=== PATIENT | male | born 1940 | race Caucasian/White ===

== ENCOUNTER 2019-08-24 21:47 | Inpatient (IN) | payer MEDICARE, SELFPAY ==
--- NOTE | 2019-08-24 22:16 | ED.GENADUL_ITS ---
Discharge Plan Disposition Patient Disposition: [facility] INPATIENT Condition: Stable Discharge Details Chief Complaint: GenMedical Clinical Impression: Dementia Admit Date/Time: 08/25/19 15:51 Admit Provider: Vero Guillen Attending Provider: Harsh Lam Primary Care Provider: Kari Morrissey ED Provider: Prosper Frances Hospital Course Hospital Course: HPI: 79 year old man with a prior history of Alzheimer's Dementia, admitted from [facility] on 08/25 after being found lost and in a state of confusion. Mr. Jones has a Past Medical history significant for Alzheimer's Dementia, CAD with history of revascularization, Paroxysmal Afib s/p Maze procedure, and Anal Ca s/p chemo and XRT. The patient lives in [place], and drove himself to this area where he was found parked in a [place] field and brought to the ED by the police. He was not ill appearing - no labs or imaging was performed. Urinalysis did not show evidence of infection. [employer] became involved in his care, but with unsuccessful attempts at find family or any associated friends to pick him up to return to [place]. He was admitted under Swing Bed status until appropriate disposition could be made for his return home. This afternoon Mr. Jones was visited by some of his friends and neighbors from [place]. He recognizes them and appears comfortable in their presence, and is consenting to leave in their company to return home. Adult Protective Services were contacted, with discussion with case management culminating in the patient being allowed to leave as long as he is willing to consent as such. Following his return to [place] APS will be following closely and investigating his case. We are reassured by APS and case management that the patient's departure at this time is safe and legally appropriate. Discharge Instructions Forms: Nursing Discharge Form Discharge Data Discharge Date/Time-TO BE ENTERED AT DEPARTURE: 08/25/19 15:49 Medical Decision Making <GISSEL Sue - Last Filed: 08/29/19 21:08> Patient is a 79-year-old male with history of dementia presenting today with chief complaint of altered mental status. Patient typically resides in [facility]. Drove himself here for unclear reasons. He was found to [facility] by police and brought in for evaluation. Patient reported to Police Department that he was a year 1918. Currently endorsing to be 1970. Reports that he is currently in [place]. He is oriented to person. Is able to tell me historical events. Does often pause and have difficulty with recollection and his long periods of thought. He does not appear clinically ill. No abnormalities on physical exam the patient's current mental status. This seems to be baseline for the patient. No neurologic deficits are noted. Will consult with care management. Consult wound care management. Patient is currently comfortable, has been eating and is prepared for sleep at this time. Will be kept in the department overnight for continued monitoring. Care management will help tomorrow to reach out to patient's home and see about transfer back. With his current dementia symptoms, I I am concerned with the patient's current safety residing unassisted. Patient typically receives his care at [facility] in [facility]. Was not able to tell me the name of his primary care physician. At the end of my shift, care was transitioned to Dr. Ny with final disposition pending. Patient is resting comfortably. <Gualberto Ny MD - Last Filed: 08/25/19 07:19> Patient without issues overnight. Care management notified overnight regarding patient. Patient will be signed over to oncoming physician as we work on getting him back to [place]. <Prosper Frances MD - Last Filed: 08/25/19 15:08> pt has remained calm and stable here without complaints. Care management unable to find someone to pick him up or place him anywhere. Will be admitted to swing bed II HPI <GISSEL Sue - Last Filed: 08/29/19 21:08> General Mode of arrival: ambulatory (brought in by PD) . Date/Time Provider Initiated Documentation: 08/24/19 21:49 . Limitations to Documentation: altered mental status (dementia) . Information obtained by: patient, police (accompanied by MH) and RN notes reviewed . HPI Narrative: Patient is a pleasant 79-year-old gentleman, brought in via local police department and accompanied by mental health, with chief complaint of confusion. Patient reports history of dementia. Police to bring the patient in, reports that the patient's family had reported to him a history of dementia. However, the patient does not reside with them, is not involved in their lives at this time. 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 Patient is aware that he is been told he has dementia before but does not necessarily agree with this diagnosis. He was [place] today, [place] Had drove here from [facility] where he typically resides alone. 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 Believes it is 1970 and he is in [place]. He denies any headache, visual changes. No chest pain or shortness of breath. Denies any GI upset, is endorsing hunger at this time. No dysuria, increased frequency urgency. Is feeling physically well. Related Data Home Medications Medication Instructions Recorded Confirmed aspirin 325 mg PO DAILY 08/25/19 08/25/19 Allergies Allergy/AdvReac Type Severity Reaction Status Date / Time Sulfa (Sulfonamide Allergy per pcp Unverified 08/25/19 09:53 Antibiotics) chart sulfamethoxazole Allergy per pcp Unverified 08/25/19 09:52 [From Bactrim] chart trimethoprim [From Bactrim] Allergy per pcp Unverified 08/25/19 09:52 chart hydrocodone AdvReac Hallucinati Unverified 08/25/19 09:52 ons Review of Systems <GISSEL Sue - Last Filed: 08/29/19 21:08> Constitutional Constitutional: Reports as per HPI, Denies chills, Denies fatigue, Denies fever(s), Denies headache(s) and Denies weakness Eyes Eyes: Denies change in vision ENT Ears, Nose, Mouth, and Throat: Denies headache(s) Cardiovascular Cardiovascular: Reports as per HPI, Denies chest pain, Denies lightheadedness, D enies dyspnea and Denies dyspnea on exertion Respiratory Respiratory: Reports as per HPI, Denies cough, Denies dyspnea and Denies dyspnea on exertion Gastrointestinal Gastrointestinal: Reports as per HPI, Denies abdominal pain, Denies change in bowel habits, Denies nausea and Denies vomiting Genitourinary Genitourinary: Denies system reviewed and no additional complaints, except as docu (denies any change in urinary habits) Musculoskeletal Musculoskeletal: Denies abnormal gait Integumentary/Breasts Skin/Breast: Reports as per HPI and Denies rash Neurologic Neurologic: Denies abnormal movements, Denies abnormal speech, Denies abnormal gait, Denies headache(s), Reports memory loss, Denies paresthesias and Denies weakness Psychiatric Psychiatric: Denies change in appetite, Denies hopelessness, Reports memory loss, Denies homicidal ideation and Denies suicidal ideation Endocrine Endocrine: Denies fatigue PFSH <GISSEL Sue Last Filed: 08/29/19 21:08> Medical History Alzheimer's dementia (Chronic) Anal adenocarcinoma (Acute) Angina pectoris (Chronic) Atrial fibrillation (Chronic) Surgical History Hernia (Chronic) History of heart surgery (Chronic) History of removal of Port-a-Cath (Acute) Port-A-Cath in place (Acute) Social History Smoking/Tobacco Use Status: Former Tobacco Use Alcohol Intake: current Alcohol Intake frequency: holidays/special occasions only Drug use: Never Substance use type: does not use Do you feel safe at home: Yes Do you feel safe in your relationship?: Yes Exam <GISSEL Sue Last Filed: 08/29/19 21:08> Const General: cooperative, healthy appearing, comfortable, no acute distress, well developed and well groomed Nutritional Appearance: average body habitus and well nourished Orientation: alert and awake Eyes General: appearance normal, both eyes and all related structures Resp Effort & Inspection: normal respiratory effort, able to speak in complete sentences and no respiratory distress Auscultation: clear to auscultation bilaterally, no rales, no rhonchi and no wheezes Cardio Rate: regular rate Rhythm: regular rhythm Heart Sounds: S1 normal and S2 normal Skin General skin exam: no rashes or lesions noted Trauma: no lacerations or abrasions Neuro General: alert and awake Cognition: normal cognition Speech: speech normal Gait: normal gait Psych Appearance: grossly normal and well kempt Mental Status: mental status grossly normal Speech and Movement: speech and movement normal Mood: congruent mood Affect: normal affect Attitude: cooperative Thought Process: tangential Insight: limited Judgment: limited Sign Out <GISSEL Sue Last Filed: 08/29/19 21:08> Sign Out Data: Sign Out Comment: Care transitioned to Dr. Ny with final disposition pending. Patient pleasantly confused, drove here from [place], found in care in local cow field, confused. Hx of dementia. Last updated by Rupal Gamble PA at 08/24/19 23:37 Sign Out Comment: Pending care management evaluation. Last updated by Gualberto Ny MD at 08/25/19 07:50
[2019-08-24 22:37] VITALS: BP 156/95; PULSE 98; RESP 16; TEMP 36.7; O2SAT 95
[2019-08-24 22:46] VITALS: RESP 16
--- NOTE | 2019-08-24 23:15 | NUR.NOTE ---
Arrives with police and [facility] with c/o confusion. Per [place] police lieutenant, pt was found in his car in a neighbors cow field. Pt reports that he is from [place], [place], had driven here to visit some family. Pt unsure where here is, and whether he made it to see his family. Pt lives at home alone, , no children. Per police got in touch with family, pt had license suspended by [facility] d/t dementia. They tried to help pt find a facility to live in, he refused to go. They will not send anyone to come get him. Pt has no c/o, feels well. Alert to person, confused to time, place, location. Calm and cooperative. Changed into paper clothing for sleep. Pt aware plan is to stay overnight in ED. Provided with sandwich, wilner jaclyn and yogurt. Ambulating to BR with steady gait.
[2019-08-25 02:18] LABS: Bilirubin Negative (Negative); Blood Negative (Negative); Clarity Clear (Clear); Glucose Negative (Negative); Ketones Trace mg/dL (Negative); Leukocyte Esterase Negative (Negative); Nitrite Negative (Negative); Specific Gravity >= 1.030 (1.005-1.025)
--- NOTE | 2019-08-25 02:35 | NUR.NOTE ---
Ambulated to With steady gait. Provided urine spec.
--- NOTE | 2019-08-25 09:24 | NUR.NOTE ---
Nursing Note: PCP; Dr. Karson Sun of [place], [place]. Phone #: [phone]. Spoke with office staff and they will fax to us the medicaion list and problem list. Nora Gaffney.
[2019-08-25 12:49] VITALS: BP 104/70; PULSE 73; RESP 18; TEMP 36.7; O2SAT 95
--- NOTE | 2019-08-25 15:26 | NUR.NOTE ---
Nursing Note: This am pt alert/pleasantly confused/easily redirected. Eating meals independently. Thanking Staff for food and hospitality. Reading a book and writing. Written words on paper however do not match what he says they are. More of a word jumble. After lunch we had to move him from rm 9 into rm 8 to allow for another pts need for space. Even though we moved the same bed/reclining chair/and table into new room, he seemed to become more restless and wandering. Was able to redirect but had to be more firm about it. At 1445 I sat and talked with him for a while then suggested he was looking weary and could use a nap. He was been laying quitly and dozing since then.
--- NOTE | 2019-08-25 15:41 | HPE_ITS ---
Date of service: 08/25/19 Time of Service: 15:41 Assessment and Plan Assessment and plan (1) Alzheimer's dementia: Status: Chronic Assessment and plan: Admit to swing bed II status while care management works to get him back into his community. Notes from his PCP in [place] reveal concern over his safety living at home alone and driving due to alzheimer's dementia. Consult PT for safety evaluation. (2) Coronary artery disease: Status: Chronic Assessment and plan: S/p bipass and MAZE procedure in 2005. Continue aspirin therapy. (3) Atrial fibrillation: Status: Chronic Assessment and plan: MAZE as above in 2005. Not on anticoagulation. Rate controlled at this time in the 70s. (4) Discharge planning issues: Status: Acute Assessment and plan: Care Management is working to get him back to his community in [place]. PT consulted. This case was discussed with Dr. Guillen who is in agreement. History of Present Illness History of Present Illness Chief Complaint: Altered mental status Narrative: David Jones is a 79 year old man with a past medical history of alzheimer's dementia, CAD with history of bipass and MAZE procedure in 2005, paroxysmal atrial fibrillation, previous history of anal cancer, treated with chemo and radiation, and chronic right shoulder pain who lives in [place] and drove himself to this area for unknown reasons. He was found in a [place] and brought to the ED by police late last night. He did not appear ill on examination. He had a UA that was not suspicious for infection. Care Management became involved in his care and attempted to find family or a friend to pick him up and take him back to [place], however, they were not able to secure a ride for him immediately. He is admitted to the med/surg floor on swing bed II status until he can safely be discharged home. At the time of his admission, he offers no complaints. He denies dizziness, chest pain/pressure, palpitations, shortness of breath, coughing, wheezing, nausea, abdominal pain, vomiting, diarrhea. He is nonsensical when talking, he changes the topic frequently during the same conversation. When questioned what brings him to [place], he states he is here, for a conference about raising animals that was not really planned. And then goes on to state that he got his car stuck in the people that helped him out brought him to the hospital. He is not clear, however, that he is in a hospital. He is asking about flights and a irports. He thought he was in the [place]. Review of Systems All systems reviewed & are unremarkable except as noted in HPI and below PFSH Medical History Alzheimer's dementia (Chronic) Anal adenocarcinoma (Acute) Angina pectoris (Chronic) Atrial fibrillation (Chronic) Surgical History Hernia (Chronic) History of heart surgery (Chronic) History of removal of Port-a-Cath (Acute) Port-A-Cath in place (Acute) Social History Smoking/Tobacco Use Status: Former Tobacco Use Alcohol Intake: current Alcohol Intake frequency: holidays/special occasions only Drug use: Never Substance use type: does not use Do you feel safe at home: Yes Do you feel safe in your relationship?: Yes Meds Home Medications and Allergies Home Medications Medication Instructions Recorded Confirmed Type aspirin 325 mg PO DAILY 08/25/19 08/25/19 History Allergies Allergy/AdvReac Type Severity Reaction Status Date / Time Sulfa (Sulfonamide Allergy per pcp Unverified 08/25/19 09:53 Antibiotics) chart sulfamethoxazole Allergy per pcp Unverified 08/25/19 09:52 [From Bactrim] chart trimethoprim [From Bactrim] Allergy per pcp Unverified 08/25/19 09:52 chart hydrocodone AdvReac Hallucinati Unverified 08/25/19 09:52 ons Exam Narrative Exam Narrative: General: elderly man, oriented to self only, not oriented to place, time or situation. Pleasant and confused. HEENT: normocephalic, atraumatic. Pupils equal and round, EOMI, mucous membranes moist. Neck: supple, no JVD. Cardiovascular: heart has regular rate and rhythm, no murmur appreciated. Chest: vertical scar, midline, well healed. Respiratory: respirations even and unlabored, lung sounds clear to auscultation bilaterally. GI: normal bowel sounds x4 quadrants, abdomen soft, nontender on palpation, non distended. Extremities: LLE with mild edema, venous stasis changes. Pedal pulses palpable bilaterally. Results Labs Result diagrams: 08/24/19 22:17 08/24/19 22:17 Labs: Laboratory Results - last 24 hr 08/24/19 08/24/19 08/24/19 22:16 22:17 22:17 WBC Cancelled RBC Cancelled Hgb Cancelled Hct Cancelled MCV Cancelled MCH Cancelled MCHC Cancelled RDW Cancelled Plt Count Cancelled MPV Cancelled Immature Gran % Cancelled Neutrophils % Cancelled Band Neutrophils % Cancelled Lymphocytes % Cancelled Atypical Lymphs % Cancelled Monocytes % Cancelled Eosinophils % Cancelled Basophils % Cancelled Metamyelocytes % Cancelled Myelocytes % Cancelled Promyelocytes % Cancelled Absolute Neutrophils Cancelled Absolute Lymphocytes Cancelled Absolute Monocytes Cancelled Absolute Eosinophils Cancelled Absolute Basophils Cancelled Nucleated RBCs Cancelled Differential Comment Cancelled Other Cell Type Cancelled RBC Morphology Cancelled Polychromasia Cancelled Hypochromasia Cancelled Poikilocytosis Cancelled Basophilic Stippling Cancelled Anisocytosis Cancelled Microcytosis Cancelled Macrocytosis Cancelled Spherocytes Cancelled Target Cells Cancelled Tear Drop Cells Cancelled Ovalocytes Cancelled Stomatocytes Cancelled Sparks-Selman Bodies Cancelled Willards Cells Cancelled Acanthocytes (Spur) Cancelled Schistocytes Cancelled Sodium Cancelled Potassium Cancelled Chloride Cancelled Carbon Dioxide Cancelled Anion Gap Cancelled BUN Cancelled Creatinine Cancelled Estimated GFR/1.73 m2 Cancelled Glucose Cancelled Calcium Cancelled Total Bilirubin Cancelled AST Cancelled ALT Cancelled Alkaline Phosphatase Cancelled Total Protein Cancelled Albumin Cancelled TSH Cancelled Urine Color Urine Clarity Urine pH Ur Specific [place] Urine Protein Urine Ketones Urine Blood Urine Nitrite Urine Bilirubin Urine Urobilinogen Ur Leukocyte Esterase Urine Glucose Ethyl Alcohol Cancelled 08/25/19 02:05 WBC RBC Hgb Hct MCV MCH MCHC RDW Plt Count MPV Immature Gran % Neutrophils % Band Neutrophils % Lymphocytes % Atypical Lymphs % Monocytes % Eosinophils % Basophils % Metamyelocytes % Myelocytes % Promyelocytes % Absolute Neutrophils Absolute Lymphocytes Absolute Monocytes Absolute Eosinophils Absolute Basophils Nucleated RBCs Differential Comment Other Cell Type RBC Morphology Polychromasia Hypochromasia Poikilocytosis Basophilic Stippling Anisocytosis Microcytosis Macrocytosis Spherocytes Target Cells Tear Drop Cells Ovalocytes Stomatocytes Sparks-Selman Bodies Mima Cells Acanthocytes (Spur) Schistocytes Sodium Potassium Chloride Carbon Dioxide Anion Gap BUN Creatinine Estimated GFR/1.73 m2 Glucose Calcium Total Bilirubin AST ALT Alkaline Phosphatase Total Protein Albumin TSH Urine Color Yellow Urine Clarity Clear Urine pH 6.0 Ur Specific [place] >= 1.030 H Urine Protein Negative Urine Ketones Trace H Urine Blood Negative Urine Nitrite Negative Urine Bilirubin Negative Urine Urobilinogen 1.0 H Ur Leukocyte Esterase Negative Urine Glucose Negative Ethyl Alcohol Last Vital Signs Temp 36.7 C 08/25/19 12:49 Pulse 73 08/25/19 12:49 Resp 18 08/25/19 12:49 BP 104/70 08/25/19 12:49 Pulse Ox 95 08/25/19 12:49
[2019-08-25 15:50] VITALS: BP 110/66; PULSE 76; RESP 15; TEMP 36.7; O2SAT 95
[2019-08-25 16:14] VITALS: BP 121/75; PULSE 91; RESP 16; TEMP 36.9; O2SAT 99
--- NOTE | 2019-08-25 16:21 | CMPROGNOTE_ITS ---
- If Service Date Differs Date of service: 08/25/19 Time of Service: 16:21 Care Management Progress Note S/O: David is a 79 year old male admitted to [facility] after being found in [place], [place] in his car in a field brought in by [facility] police department. David has a history of dementia and adult protective services in [place] contact number for APS worker Shona is [phone]. Renee is his social media assistant at the primary care office is [phone] His friend Papito Maria [phone] has been his support at home and in the community he states that they have been trying to establish a plan for assisted living for him. Per his primary care he has had weight loss, and needs extra assistance at home. His neighbors Fernanda and Aramis Contreras visit him at home and live next door. David has no local support and has no family in [place]. He has two good friends that are his same age that live in [place]. his brother is and his sister also has dementia. He has two nephews that live out of the area and who do not know him well enough or provide support. 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 David receives a pension and owns his own home and car. A: David is confused when CM meets with him in the ED he states he has been forgetful for awhile. He reports his friends and family have been concerned with his confusion for awhile and that he does not like to be told what to do. He states that him and his friend Kev have been friends for many years 65 and he is a good support for him. David states he came to this area to see if people were different here. David denies any illness, he states that his white mai awhile ago which was sad for him however, he is glad that he does not have to experience his confusion. David is polite and cooperative he is worried about his car and wants to return it to [place]. David wants to return to [place], CM reviewed the plan and advised him the goal is to return him to his home in [place]. David lives on [place], [place] and that is where he will return to with his friends Fernanda and Aramis on Thursday. P: [facility] has contacted [facility] in [place], plan will be for David to return to his home and they will continue to put a plan in place to get him to assisted living. He will be picked up Thursday afternoon by his friends. [facility] has contacted the state police to identify where his car is however [facility] has been unable to reach [place] police department where the car is alleged to be. [facility] will need to follow up with service in the morning and determine if there is a way to get the car to the hospital or locate it so the fiends can pick it up when they arrive to the area. David agrees with the plan he will be admitted over the weekend to [facility] as he does not have an acute reason to be in the hospital or a skilled need. David is unable to sign the paperwork however he does agree to treatment, his friend Papito does agree with the plan and gives permission to admit, he is not currently the guardian however he has been his only support. Papito is planning on contacting the nephews the only relatives to assist in determining the plan once David returns to [place]. [facility] has contacted all local facilities in [place] near were David lives as directed by Shona at [facility] in [place] there was no accepting facilities willing to take David in transfer.
[2019-08-25 16:34] VITALS: BP 121/75; PULSE 91; RESP 16; TEMP 36.9; O2SAT 99
[2019-08-25 23:17] VITALS: BP 124/74; PULSE 82; RESP 16; TEMP 36.5; O2SAT 95
[2019-08-26 07:00] VITALS: BP 107/71; PULSE 78; RESP 20; TEMP 36.5; O2SAT 97
[2019-08-26] MEDS: Aspirin 325 MG TAB PO (10:22)
--- NOTE | 2019-08-26 11:01 | PHARADMIT ---
Addendum entered by Payal Duran 08/27/19 13:44: Pharmacy Note Subjective pt with Alzheimers trying to get hime back to his community Objective vs ok Assessment nothing new Plan CM working working on getting pt back to [place] but he is not safe to go home and there is no payer source Original Note: Admission Pharmacy Clinical Review DEMENTIA Code Status Full Code Current Weight Wgt-91.1 kg Renally Cleared and Narrow Therapeutic Index Meds CrCl~ NA QTc Value / Action Taken none BP Control, Fever BP-107/71 Tmax- 36.7C Electrolytes reviewed NA DVT Prophylaxis none Opiate Usage / Scheduled Bowel Regimen Ordered No Yes Plt/SCr for Heparin / Enoxaparin NA INR for Warfarin NA H/H stable, WBC/Bands NA Antibiotic appropriateness none Cultures and Sensitivities none Surgical ABX d/c within 24 hr NA DM control / Insulin Dosing NA Heart Failure (Check EF%) (HAIR's, B-Block, Diuretics) none IV to PO Switch NA Home Meds Reviewed Yes Home Meds Not Ordered Ordered Comments
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
[2019-08-26 15:16] VITALS: BP 158/84; PULSE 105; RESP 18; TEMP 37.3; O2SAT 97
--- NOTE | 2019-08-26 16:57 | PT.INNT ---
Date of service: 08/26/19 Time of Service: 16:58 PT Notes Patient on swing bed level II. MD ordered holding off on PT evaluation until mobility level is updated in consultation with INDUSTRIAL MAINTENANCE MECHANIC and when insurance coverage is clarified. Thank you very much for this referral. Lily Christiansen PT, DPT, CLT [facility]
--- NOTE | 2019-08-26 18:04 | CMPROGNOTE_ITS ---
- If Service Date Differs Date of service: 08/26/19 Time of Service: 18:04 Care Management Progress Note David has been very busy today. He is oriented to person only. He does not know where he is or how he got here, but he remains very pleasant. He has been wandering in the hallways and at one point entered another patient's room. [facility] was able to locate David's car through the [employer]. [facility] coordinated having the car towed to [facility] where it will remain until he is discharged. It is parked in the lot across from the hospital closest to [facility]. This afternoon [facility] received a call from Papito Bolaños, David's long time friend. He stated that both the [place] APS Department and Miki's PCP feel that he is not safe to go home alone. Papito shared his frustration because Miki was seen by APS on Thursday of this week and they deemed him safe to be at home. There had been a plan for friends to come to [facility] on Thursday and return Miki and his car to [place]. Papito states that is no longer possible because there is no safe place for him to go. Papito continues to seek placement for Miki but he has been unsuccessful. Because Miki has not had a 3 night qualifying stay in an acute care hospital, there is no payer source. [facility]A also received a call from the PCP's office in [place] asking if [facility] had been successful in finding placement. [facility]A shared that the plan was for Miki to return to [place].
[2019-08-26] MEDS: Nystatin POWDER 15 GM JAR TP (20:23)
[2019-08-27 01:45] VITALS: BP 101/62; PULSE 100; RESP 17; TEMP 36.5; O2SAT 97
[2019-08-27 07:27] VITALS: BP 110/69; PULSE 75; RESP 17; TEMP 36.8; O2SAT 97
[2019-08-27] MEDS: Aspirin 325 MG TAB PO (09:45)
[2019-08-27 15:13] VITALS: BP 109/57; PULSE 69; RESP 16; TEMP 36.6; O2SAT 99
[2019-08-27 22:43] VITALS: BP 116/71; PULSE 69; RESP 19; TEMP 36.9; O2SAT 97
[2019-08-28] MEDS: Aspirin 325 MG TAB PO (08:12)
[2019-08-28 08:15] VITALS: BP 103/72; PULSE 77; RESP 16; TEMP 36.7; O2SAT 99
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
--- NOTE | 2019-08-28 16:19 | CMDISCH_ITS ---
- If Service Date Differs Date of service: 08/28/19 Time of Service: 16:19 LACE Index Scoring Tool - Questions: Length of Stay (in days): 4 - 6 Acuity (Admit via E.D.?): Yes Comorbidities: Dementia E.D. Visits: 1 - Answers: Total Score: 11 Risk of Readmission: High Risk Care Management Discharge Reason for Hospitalization: Dementia Discharge Plan: David was discharged into the care of his friends/neighbors Yoni and Fernanda. They traveled from [place] after speaking with David's director social to bring him home. CM contacted APS apprenticeship training representative Roland Stephenson, who stated that David is not currently under their custody, therefore if he is comfortable go ing with his friends he may do so. APS reported that they are currently following him, and will continue to do so once he is back in [place]. David is agreeable to returning home. Patient/Family Education Needs: Review discharge instructions with patient and caregivers, discussion of self care needs including Ask Me Three
== END 2019-08-28 15:40 | disposition home or self-care (01) | DRG 57 ==
LOC: ER 08-25 15:21 → MS 08-25 15:56
PROVIDERS: Physician Assistant; Admitting Provider Internal Medicine; Emergency Provider Emergency Medicine; Visit Provider Internal Medicine
DX: G30.9 Alzheimer's disease, unspecified (principal); F02.80 Dementia in other diseases classified elsewhere, unspecified severity, without behavioral disturbance, psychotic disturbance, mood disturbance, and anxiety; R41.0 Disorientation, unspecified; I48.0 Paroxysmal atrial fibrillation; I25.10 Atherosclerotic heart disease of native coronary artery without angina pectoris
CPT/HCPCS: 80053; 99285; 99304; 99315; 80320; 81003; 84443; 85025; 99284